=== PATIENT | female | born 1955 | race Caucasian/White ===

== ENCOUNTER 2016-08-31 22:50 | Inpatient (IN) | payer MEDICARE ==
[~2016-08-31] VITALS: Ht 162.6 cm; Wt 45.0 kg
[~2016-08-31 22:50] MED LIST: ACE PO; ALBUTEROL S2.5 MG/.5 IN; ALBUTEROL2.5 MG/3 M IN; AMLODIPINE5 MG PO; BACLOFEN20 MG PO; BACTRIM DS1 TAB OR; CITALOPRAM40 MG OR; COMBIVENT IN; CYCLOBENZAPR10 MG PO; DURAGESIC25 MCG/HR TD; FENTANYL50 MCG/HR TD; GABAPENTIN300 MG OR; HYDROCHLOROT25 MG OR; HYDROCO/APAP1 TA8 PO; HYDROCODONE PO; HYDROCODONE/ACE1 TAB PO; KLOR-CON M2020 MEQ PO; LASIX 20 MG20 MG/TAB; LISINOPRIL10 MG PO; LISINOPRIL20 M1 OR; LISINOPRIL30 MG OR; LORTAB 7.5 OR; METHOCARBAM500 MG PO; METHOCARBAM750 MG PO; METHOCARBAMOL500 MG PO; MILLIPRED5 MG; NEURONTIN600 MG OR; NEURONTIN800 MG PO; NO MEDS; NORCO1 TA2 PO; OXYCONTIN15 MG PO; PERCOCET 10/31 COMBO PO; PERCOCET1 TA3 OR; PRAVASTATIN SOD10 MG PO; PRAVASTATIN20 MG PO; PRILOSEC20 MG/CAP PO; QVAR40 MCG IN; ROBAXIN-750750 MG OR; SPIRIVA IN; ULTRAM50 M1 PO; VOLTAREN1%GEL TOP; ZPAK OR
--- NOTE | 2016-08-31 23:00 | NUR ---
PATIENT TO ROOM 13 VIA WHEELCHAIR. UNDRESSED INTO A GOWN. PLACED ON MONITOR. TRIAGE COMPLETED AT BEDSIDE. AWAITING MD SHARMA.
[2016-09-01 00:15] LABS: HEMATOCRIT 43.4 % (37.0-47.0); HEMOGLOBIN 14.5 g/dl (12.0-16.0); IMMATURE GRANULOCYTES 0.2 % (0.0-1.0); MEAN CELL VOLUME 89.9 fL CALC (80.0-100.0); MEAN CORPUSCULAR HGB CONC 33.4 g/L CALC (32.0-36.0); NEUT# 6.89 thou/uL (2.00-7.15); RED BLOOD COUNT 4.83 mill/uL (4.20-5.60); RED CELL DISTRI WIDTH 12.9 % (11.5-15.5)
--- NOTE | 2016-09-01 00:30 | NUR ---
PATIENT MEDICATED ORDERED. NEB TREATMENT GIVEN. WILL MONITOR FOR EFFECT.
[2016-09-01 00:35] LABS: ALBUMIN 3.6 g/dL (3.2-5.0); ALKALINE PHOSPHATASE 108 u/l (38-126); ANION GAP 14 (6-22 (CALC)); BILIRUBIN, TOTAL 0.8 mg/dL (0.0-1.4); BUN 20 mg/dL (8-23); BUN/CREATININE RATIO 25 (12-20 (CALC)); CALCIUM 9.1 mg/dL (8.4-10.2); CARBON DIOXIDE 29 mmol/l (22-30); CHLORIDE 101 mmol/l (95-108); CREATININE 0.8 mg/dL (0.5-1.0); GFR > 60 ML/MIN (>=60 (CALC)); GFR FOR AFR.AMER. > 60 ML/MIN (>=60 (CALC)); GLUCOSE 143 mg/dL (82-115); POTASSIUM 4.2 mmol/l (3.5-5.1); SGOT/AST 23 u/l (9-36); SGPT/ALT 38 u/l (11-66); SODIUM 139 mmol/l (137-146); TOTAL PROTEIN 7.1 g/dL (6.3-8.2)
[2016-09-01 00:41] LABS: INTERNATIONAL NORMALIZED RATIO 1.1 RATIO (0.7-1.3); PROTHROMBIN TIME 11.7 SECONDS (9.0-12.5)
[2016-09-01 00:45] LABS: MYOGLOBIN 41 ng/mL (0 - 62)
--- NOTE | 2016-09-01 01:03 | NUR ---
PATIENT RECEIVED THIRD NEB TREATMENT. TOLERATING WELL. AWAITING ALL RESULTS AND PLAN OF CARE.
[2016-09-01 01:07] LABS: URINE BILIRUBIN - DIPSTICK NEGATIVE (NEGATIVE); URINE BLOOD DIPSTICK NEGATIVE (NEGATIVE); URINE CLARITY CLEAR; URINE COLOR YELLOW; URINE GLUCOSE - DIPSTICK NEGATIVE (NEGATIVE); URINE KETONE NEGATIVE (NEGATIVE); URINE LEUK ESTERASE NEGATIVE (NEGATIVE); URINE NITRITE - DIPSTICK NEGATIVE (Negative); URINE PH 7.5 (4.5-8.0); URINE PROTEIN - DIPSTICK TRACE mg/dL (NEG-TRACE); URINE UROBILINOGEN - DIPSTICK 0.2 E.U./dL (0.2)
--- NOTE | 2016-09-01 01:35 | NUR ---
RESPIRATORY AT BEDSIDE FOR ABG.
--- NOTE | 2016-09-01 01:50 | NUR ---
PATIENT PLACED ON O2 VIA NC BY RESPIRATORY.
--- NOTE | 2016-09-01 03:18 | NUR ---
PATIENT AMBULATORY TO BATHROOM WITHOUT ASSIST. AWAITING PLAN OF CARE.
--- NOTE | 2016-09-01 03:53 | NUR ---
REPORT CALLED TO BRINDA. PATIENT READIED FOR TRANSPORT TO FLOOR, ON MONITOR VIA WHEELCHAIR.
--- NOTE | 2016-09-01 04:23 | NUR ---
PT ARRIVED TO FLOOR VIA WHEELCHAIR WITH OMKAR RUDOLPH. PT AMBULATED FROM W/C TO BED INDEPENDENT WITH SUPERVISION. DENIES PAIN AT THIS TIME. NO SHORTNESS OF BREATH CURRENTLY. ORIENTED TO ROOM. PLAN OF CARE DISCUSSED. ENCOURAGED TO VERBALIZE CONCERNS. STATES UNDERSTANDING. SAFETY MEASURES IN PLACE. CALL LIGHT SYSTEM REVIEWED AND IN REACH.
[2016-09-01 04:25] VITALS: BP 158/80
--- NOTE | 2016-09-01 07:26 | NUR ---
BEDSIDE REPORT RECEIVED FROM JOSE PARRY. PT REPORTS SEVERE BACK PAIN, CHRONIC IN NATURE. NEW ORDERS FOR PAIN MEDICATIONS DISCUSSED. REPORTING OF FURTHER CONCERNS ENCOURAGED. NO SOB NOTED. PLAN OF CARE DISCUSSED. CALL LIGHT REVIEWED AND IN REACH. PT STATES UDNERSTANDING.
[2016-09-01 07:34] VITALS: BP 137/73
[2016-09-01 11:15] VITALS: BP 143/69
--- NOTE | 2016-09-01 13:31 | NUR ---
PT REPORTS MILD BACK PAIN. STATES "IM OKAY FOR NOW." REPORTING OF CONCERNS ENCOURAGED. WILL CONTINUE TO MONITOR.
[2016-09-01 15:40] VITALS: BP 152/78
--- NOTE | 2016-09-01 15:57 | NUR ---
PT REPORTS ANXIETY. REQUESTING "SOMETHING TO CALM ME DOWN." DR. GARNETT NOTIFIED. ORDERS FOR NICOTINE PATCH AND XANAX GIVEN. MEDS ADMINISTERED. WILL CONTINUE TO MONITOR.
--- NOTE | 2016-09-01 19:24 | NUR ---
BEDSIDE REPORT RECEIVED FROM OMKAR DANIEL. PT SITTING UP IN BED WATCHING TV. DROWSY AT THIS TIME AND ORIENTED. DENIES PAIN AND STATES THAT MEDICATION HAD GOOD EFFECT ON ANXIETY. PLAN OF CARE REVIEWED. ENCOURAGED TO VERBALIZE CONCERNS. STATES UNDERSTANDING. SAFETY MEASURES IN PLACE. CALL LIGHT SYSTEM REVIWED AND IN REACH.
[2016-09-01 19:54] VITALS: BP 136/66
[2016-09-02] VITALS (7 sets, daily range): BP systolic 117–156; BP diastolic 61–89
--- NOTE | 2016-09-02 | NUR ---
PT ASLEEP AT THIS TIME AFTER PAIN AND ANXIETY MEDICATIONS ADMINISTERED. RESPIRATORY EFFORT AT BASELINE. IV SITE APPEARS HEALTHY AND FLUSHING. COLOSTOMY TO LLQ VISIBLE AND APPEARS HEALTHY. UP AD JUAN TO VOID. SAFETY MEASURES IN PLACE. CALL LIGHT IN REACH.
--- NOTE | 2016-09-02 04:06 | NUR ---
PT RESTING IN BED IN SEMI FOWLERS POSITION. STATES THAT ANXIETY MEDICATION WAS EFFECTIVE. APPEARS CALM. DENIED PAIN AND SOB. NO REQUESTS AT THIS TIME. SAFETY MEASURES IN PLACE. CALL LIGHT WITHIN REACH.
[2016-09-02 05:52] LABS: HEMATOCRIT 40.6 % (37.0-47.0); HEMOGLOBIN 13.6 g/dl (12.0-16.0); IMMATURE GRANULOCYTES 0.4 % (0.0-1.0); MEAN CELL VOLUME 89.6 fL CALC (80.0-100.0); MEAN CORPUSCULAR HGB CONC 33.5 g/L CALC (32.0-36.0); NEUT# 10.35 thou/uL (2.00-7.15); RED BLOOD COUNT 4.53 mill/uL (4.20-5.60); RED CELL DISTRI WIDTH 13.1 % (11.5-15.5)
[2016-09-02 06:23] LABS: ANION GAP 12 (6-22 (CALC)); BUN 30 mg/dL (8-23); BUN/CREATININE RATIO 45 (12-20 (CALC)); CALCIUM 9.1 mg/dL (8.4-10.2); CARBON DIOXIDE 27 mmol/l (22-30); CHLORIDE 106 mmol/l (95-108); CREATININE 0.7 mg/dL (0.5-1.0); GFR > 60 ML/MIN (>=60 (CALC)); GFR FOR AFR.AMER. > 60 ML/MIN (>=60 (CALC)); GLUCOSE 147 mg/dL (82-115); POTASSIUM 4.3 mmol/l (3.5-5.1); SODIUM 141 mmol/l (137-146)
--- NOTE | 2016-09-02 07:33 | NUR ---
REPORT RECEIVED FROM JOSE PARRY. PT SLEEPING AT THIS TIME. CALL LIGHT WITHIN REACH. WILL CONTINUE TO MONITOR.
--- NOTE | 2016-09-02 08:25 | NUR ---
PT REPORTS MODERATE BACK PAIN AND ANXIETY. PERCOCET AND XANAX ADMINISTERED. WILL MONITOR FOR EFFECTIVENESS. PLAN OF CARE DISCUSSED. REPORTING OF FURTHER CONCERNS ENCOURAGED. CALL LIGHT REVIEWED AND IN REACH. PT STATES UNDERSTANDING.
--- NOTE | 2016-09-02 14:26 | NUR ---
PT UP TO RESTROOM, BATHED SELF. COLOSTOMY EQUIPMENT CHANGED BY SELF. SOB AFTER. DUONEB ADMINISTERED. PT REPORTS IMPROVEMENT IN BREATHING.
--- NOTE | 2016-09-02 16:09 | NUR ---
PT UP TO RESTROOM AT THIS TIME. TOLERATING ACTIVITY WELL.
--- NOTE | 2016-09-02 19:00 | NUR ---
RECEIVED REPORT ON PATIENT FROM OFF GOING NURSE. PATIENT RESTING IN BED. NO ACUTE DISTRESS NOTED.
--- NOTE | 2016-09-03 | NUR ---
PATIENT RESTING QUIETLY. NO ACUTE DISTRESS NOTED.
[2016-09-03 05:04] VITALS: BP 148/93
--- NOTE | 2016-09-03 05:04 | NUR ---
RESTING WITH EYES CLOSED. NO ACUTE DISTRESS NOTED.
[2016-09-03 05:12] LABS: HEMATOCRIT 41.6 % (37.0-47.0); HEMOGLOBIN 13.9 g/dl (12.0-16.0); IMMATURE GRANULOCYTES 0.6 % (0.0-1.0); MEAN CELL VOLUME 89.3 fL CALC (80.0-100.0); MEAN CORPUSCULAR HGB 29.8 pG CALC (26.0-32.0); MEAN CORPUSCULAR HGB CONC 33.4 g/L CALC (32.0-36.0); NEUT# 9.2 thou/uL (2.00-7.15); RED BLOOD COUNT 4.66 mill/uL (4.20-5.60); RED CELL DISTRI WIDTH 13.2 % (11.5-15.5)
[2016-09-03 05:21] LABS: ANION GAP 12 (6-22 (CALC)); BUN 31 mg/dL (8-23); BUN/CREATININE RATIO 45 (12-20 (CALC)); CALCIUM 9.1 mg/dL (8.4-10.2); CARBON DIOXIDE 26 mmol/l (22-30); CHLORIDE 105 mmol/l (95-108); CREATININE 0.7 mg/dL (0.5-1.0); GFR > 60 ML/MIN (>=60 (CALC)); GFR FOR AFR.AMER. > 60 ML/MIN (>=60 (CALC)); GLUCOSE 115 mg/dL (82-115); POTASSIUM 4.1 mmol/l (3.5-5.1); SODIUM 139 mmol/l (137-146)
--- NOTE | 2016-09-03 07:00 | NUR ---
RECEIVED BEDSIDE REPORT FROM KAREN ESPITIA. PT RESTING IN SUPINE POSITION WITH EYES CLOSED. RESPS EVEN AND UNLABORED ON ROOM AIR, TELE MONITOR IN PLACE. REPORTS FEELING BETTER, "JUST GOT PILLS FOR PAIN." PLAN OF CARE DISCUSSED. SAFETY PRECAUTIONS REINFORCED. BED IN LOWEST POSITON WITH WHEELS LOCKED. CALL LIGHT WITHIN REACH. WILL CONTINUE TO MONITOR.
[2016-09-03 08:37] VITALS: BP 147/68
[2016-09-03 09:41] VITALS: BP 147/68
[2016-09-03] MEDS ORDERED: IPRATROPIU0.5 MG/3 M IN (11:18)
[2016-09-03] MEDS ORDERED: PREDNISONE10 MG PO (11:18)
[2016-09-03] MEDS ORDERED: LEVAQUIN750 MG PO (11:18)
--- NOTE | 2016-09-03 11:29 | NUR ---
AMBULATED IN HALLWAY FOR 5 MINS. BEFORE AMBULATION O2 SATURATION 93%; WHILE AMBULATING O2 SATURATION 92%. PT TOLERATED WITH SHORTNESS OF BREATH.
--- NOTE | 2016-09-03 12:19 | NUR ---
MEDICATED WITH XANAX 0.25MG PO FOR C/O ANXIETY. SITTING IN BED EATING LUNCH. VISITOR AT BEDSIDE. WILL CONTINUE TO MONITOR.
--- NOTE | 2016-09-03 13:15 | NUR ---
Discharge instructions given. Patient verbalizes understanding of same. Discharged in stable condition via Wheelchair to Home with friend. All belongings sent with pt.
[2016-09-04] MEDS ORDERED: FENTANYL50 MCG/HR TD (08:20)
[2016-09-04] MEDS ORDERED: PERCOCET 10/31 COMBO PO (08:21)
== END 2016-09-03 13:15 | disposition home or self-care (01) | DRG 192 ==
LOC: ENPENDDIS → ED 22:50 → ED-I 23:18 → ED 09-01 03:39 → MS2 09-01 03:40
PROVIDERS: Emergency Medicine; ADMIT Internal Medicine; ATTEND Internal Medicine
PROC: 3E0234Z Introduction of Serum, Toxoid and Vaccine into Muscle, Percutaneous Approach (ICD-10-PCS; principal; 2016-09-02)
DX: J44.1 Chronic obstructive pulmonary disease with (acute) exacerbation (principal); M41.9 Scoliosis, unspecified; I10 Essential (primary) hypertension; F17.210 Nicotine dependence, cigarettes, uncomplicated; G89.29 Other chronic pain; M54.9 Dorsalgia, unspecified; R09.02 Hypoxemia; K46.9 Unspecified abdominal hernia without obstruction or gangrene; F12.90 Cannabis use, unspecified, uncomplicated; Z90.49 Acquired absence of other specified parts of digestive tract; Z93.3 Colostomy status; Z23 Encounter for immunization

== ENCOUNTER 2016-09-22 10:10 | Inpatient (IN) | payer MEDICARE ==
[~2016-09-22] VITALS: Ht 162.6 cm; Wt 42.0 kg
[~2016-09-22 10:10] MED LIST changes: +IPRATROPIU0.5 MG/3 M IN; +LEVAQUIN750 MG PO; +PREDNISONE10 MG PO
[2016-09-22 10:44] LABS: HEMATOCRIT 49.6 % (37.0-47.0); HEMOGLOBIN 16.4 g/dl (12.0-16.0); IMMATURE GRANULOCYTES 0.5 % (0.0-1.0); MEAN CELL VOLUME 90.2 fL CALC (80.0-100.0); MEAN CORPUSCULAR HGB 29.8 pG CALC (26.0-32.0); MEAN CORPUSCULAR HGB CONC 33.1 g/L CALC (32.0-36.0); NEUT# 10.16 thou/uL (2.00-7.15); RED BLOOD COUNT 5.5 mill/uL (4.20-5.60); RED CELL DISTRI WIDTH 13.6 % (11.5-15.5)
[2016-09-22 10:53] LABS: ALBUMIN 3.5 g/dL (3.2-5.0); ALKALINE PHOSPHATASE 97 u/l (38-126); ANION GAP 11 (6-22 (CALC)); BILIRUBIN, TOTAL 0.8 mg/dL (0.0-1.4); BUN 34 mg/dL (8-23); BUN/CREATININE RATIO 55 (12-20 (CALC)); CALCIUM 9.3 mg/dL (8.4-10.2); CARBON DIOXIDE 33 mmol/l (22-30); CHLORIDE 100 mmol/l (95-108); CREATININE 0.6 mg/dL (0.5-1.0); GFR > 60 ML/MIN (>=60 (CALC)); GFR FOR AFR.AMER. > 60 ML/MIN (>=60 (CALC)); GLUCOSE 129 mg/dL (82-115); MAGNESIUM 2.2 mg/dL (1.6-2.3); POTASSIUM 4.3 mmol/l (3.5-5.1); SGOT/AST 29 u/l (9-36); SGPT/ALT 98 u/l (11-66); SODIUM 139 mmol/l (137-146)
[2016-09-22 11:04] LABS: MYOGLOBIN 36 ng/mL (0 - 62)
[2016-09-22 14:15] VITALS: BP 169/97
[2016-09-22 14:36] LABS: URINE BILIRUBIN - DIPSTICK NEGATIVE (NEGATIVE); URINE BLOOD DIPSTICK NEGATIVE (NEGATIVE); URINE CLARITY CLEAR; URINE COLOR YELLOW; URINE GLUCOSE - DIPSTICK NEGATIVE (NEGATIVE); URINE KETONE NEGATIVE (NEGATIVE); URINE LEUK ESTERASE NEGATIVE (NEGATIVE); URINE NITRITE - DIPSTICK NEGATIVE (Negative); URINE PH 6.5 (4.5-8.0); URINE PROTEIN - DIPSTICK TRACE mg/dL (NEG-TRACE)
[2016-09-22 15:39] LABS: BARBITURATES NEGATIVE (NEGATIVE); COCAINE NEGATIVE (NEGATIVE); METHADONE NEGATIVE (NEGATIVE); OXCYCODONE NEGATIVE (NEGATIVE); TETRAHYDROCANNABIONOL POSITIVE (NEGATIVE); TRICYLIC ANTIDEPRESSANTS NEGATIVE (NEGATIVE)
[2016-09-22 16:15] VITALS: BP 159/97
[2016-09-22 19:10] VITALS: BP 131/77
[2016-09-22 23:58] VITALS: BP 126/75
[2016-09-23 04:14] VITALS: BP 142/85
[2016-09-23 05:40] LABS: ANION GAP 9 (6-22 (CALC)); BUN 31 mg/dL (8-23); BUN/CREATININE RATIO 58 (12-20 (CALC)); CARBON DIOXIDE 30 mmol/l (22-30); CHLORIDE 102 mmol/l (95-108); CREATININE 0.5 mg/dL (0.5-1.0); GFR > 60 ML/MIN (>=60 (CALC)); GFR FOR AFR.AMER. > 60 ML/MIN (>=60 (CALC)); GLUCOSE 124 mg/dL (82-115); POTASSIUM 4.2 mmol/l (3.5-5.1); SODIUM 137 mmol/l (137-146)
[2016-09-23 07:34] VITALS: BP 152/89
[2016-09-23 11:06] VITALS: BP 145/84
[2016-09-23 15:40] VITALS: BP 114/70
[2016-09-23 19:48] VITALS: BP 129/80
[2016-09-24] VITALS: BP 129/86
[2016-09-24 04:35] VITALS: BP 149/84
[2016-09-24 08:17] VITALS: BP 134/81
[2016-09-24 15:19] VITALS: BP 135/75
[2016-09-24 19:45] VITALS: BP 128/73
[2016-09-24 23:55] VITALS: BP 131/72
[2016-09-25 03:55] VITALS: BP 131/83
[2016-09-25 05:34] LABS: HEMATOCRIT 43.2 % (37.0-47.0); HEMOGLOBIN 14.3 g/dl (12.0-16.0); IMMATURE GRANULOCYTES 0.3 % (0.0-1.0); MEAN CELL VOLUME 91.5 fL CALC (80.0-100.0); MEAN CORPUSCULAR HGB 30.3 pG CALC (26.0-32.0); MEAN CORPUSCULAR HGB CONC 33.1 g/L CALC (32.0-36.0); NEUT# 7.89 thou/uL (2.00-7.15); RED BLOOD COUNT 4.72 mill/uL (4.20-5.60); RED CELL DISTRI WIDTH 13.7 % (11.5-15.5)
[2016-09-25 05:47] LABS: ANION GAP 9 (6-22 (CALC)); BUN 31 mg/dL (8-23); BUN/CREATININE RATIO 63 (12-20 (CALC)); CALCIUM 9.1 mg/dL (8.4-10.2); CARBON DIOXIDE 30 mmol/l (22-30); CHLORIDE 103 mmol/l (95-108); CREATININE 0.5 mg/dL (0.5-1.0); GFR > 60 ML/MIN (>=60 (CALC)); GFR FOR AFR.AMER. > 60 ML/MIN (>=60 (CALC)); GLUCOSE 114 mg/dL (82-115); POTASSIUM 4.3 mmol/l (3.5-5.1); SODIUM 138 mmol/l (137-146)
[2016-09-25 08:33] VITALS: BP 135/79
[2016-09-25 10:58] VITALS: BP 129/75
[2016-09-25 15:19] VITALS: BP 135/80
[2016-09-25 19:23] VITALS: BP 151/79
[2016-09-26 00:30] VITALS: BP 136/87
[2016-09-26 04:50] VITALS: BP 150/77
[2016-09-26 09:14] VITALS: BP 168/98
[2016-09-26] MEDS ORDERED: PREDNISONE10 MG PO (09:20)
== END 2016-09-26 13:54 | disposition hospice, inpatient (51) | DRG 189 ==
LOC: ENPENDDIS → ED 10:10 → ED-I 12:29 → ED 12:45 → MS2 12:46
PROVIDERS: Emergency Medicine; Internal Medicine; ADMIT Internal Medicine; ATTEND Internal Medicine
DX: J96.21 Acute and chronic respiratory failure with hypoxia (principal); E43 Unspecified severe protein-calorie malnutrition; R64 Cachexia; J44.1 Chronic obstructive pulmonary disease with (acute) exacerbation; Z68.1 Body mass index [BMI] 19.9 or less, adult; J44.0 Chronic obstructive pulmonary disease with (acute) lower respiratory infection; J96.22 Acute and chronic respiratory failure with hypercapnia; F17.210 Nicotine dependence, cigarettes, uncomplicated; F12.10 Cannabis abuse, uncomplicated; M15.9 Polyosteoarthritis, unspecified; E78.5 Hyperlipidemia, unspecified; I10 Essential (primary) hypertension; J20.9 Acute bronchitis, unspecified; Z66 Do not resuscitate; G89.29 Other chronic pain; K46.9 Unspecified abdominal hernia without obstruction or gangrene; Z93.3 Colostomy status; Z51.5 Encounter for palliative care
CPT/HCPCS: J1650